=== PATIENT | male | born 1990 | race Caucasian/White ===

== ENCOUNTER 2021-01-18 01:18 | Inpatient (IN) | payer OTHER ==
[~2021-01-18] VITALS: Ht 185.4 cm; Wt 113.4 kg
[2021-01-18 01:29] VITALS: BP 149/113
[2021-01-18] MEDS ORDERED: CLONAZEPAM 0.50.5 M1 PO (01:42)
[2021-01-18 03:04] LABS: ABSOLUTE NEUTROPHILS 16.6 thou/uL (1.4-8.2); BASOPHILS 0.5 % (0.0-2.0); EOSINOPHILS 1.4 % (0.0-3.0); HEMATOCRIT 45.1 % (42.0-52.0); HEMOGLOBIN 15.6 gm/dL (14.0-18.0); LYMPHOCYTES 9.2 % (24.0-44.0); MCH 31.2 pg (26.0-34.0); MCHC 34.6 g/dL (28.0-37.0); MONOCYTES 4.6 % (1.0-8.0); PLATELET COUNT 231 thou/uL (150-400); POLYS 84.3 % (36.0-66.0); RBC 5.02 mil/uL (4.50-6.00); RDW 13.4 % (10.5-14.5); WBC 19.7 thou/uL (4.0-11.0)
[2021-01-18 03:12] LABS: CALCIUM 8.9 mg/dL (8.5-10.1); CREATININE 1.1 mg/dL (0.7-1.3)
[2021-01-18 03:19] LABS: ALBUMIN 3.6 g/dL (3.4-5.0); TOTAL BILIRUBIN 0.6 mg/dL (0.2-1.0); TOTAL PROTEIN 7.1 g/dL (6.4-8.2)
[2021-01-18 03:25] LABS: POTASSIUM 5.6 mmol/L (3.5-5.1)
[2021-01-18 07:31] VITALS: BP 128/77
[2021-01-18 07:37] VITALS: BP 135/84
--- NOTE | 2021-01-18 09:59 | NUR ---
ASSUMED PT CARE AT 0744 FROM ER. PT IS ALERT & ORIENTED X4. PT HAS IV SITE ON RAC RUNNING NS @75ML/HR. PT IS UP AD JOYCE. PT IS ON ROOM AIR. LAST BM WAS YESTERDAY. FINISHED ADMISSION. PT HAS BEEN NPO. WILL HAVE EGD TODAY. PT IS UP AD JOYCE. PT IS ON THE BED WATCHING TV, CALL LIGHT WITHIN REACH. WILL CONTINUE TO MONITOR PT. FOLLOW POC.
[2021-01-18 12:40] LABS: URINE BILIRUBIN NEGATIVE (Negative); URINE BLOOD TRACE (Negative); URINE CLARITY CLEAR; URINE COLOR YELLOW; URINE GLUCOSE-RANDOM* NEGATIVE (Negative); URINE KETONES TRACE (Negative); URINE LEUKOCYTES-REFLEX NEGATIVE (Negative); URINE NITRITE-REFLEX NEGATIVE (Negative); URINE PROTEIN (DIPSTICK) NEGATIVE (Negative)
--- NOTE | 2021-01-18 14:57 | NUR ---
PT ADMITTED RELATED TO ABD PAIN, ACHLASIA. CM REVEIWED CHART AND SPOKE WITH CARE TEAM. CM MET WITH PT AT BEDSIDE THIS DAY. PT APPEARED TO BE A&O X4. CM ROLE INTRODUCED. 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 HE INDICATED 3 STEPS TO ENTER AND NO STEPS INSIDE. PT INIDCATED HE HAS INSURANCE THROUGH HIS EMPLOYER [email or web address] AND THAT IT'S A [employer] PRODUCT. PT TO HAVE EGD TODAY AND WILL DC HOME TO SELF CARE LIKELY AFTER PROCEDURE. NO OTHER CM INTERVENTION INDICATED CASE CLOSED.
[2021-01-18 16:17] VITALS: BP 135/82
[2021-01-18 20:22] VITALS: BP 139/100
--- NOTE | 2021-01-19 00:51 | NUR ---
assessment completed . Pt observed walking around. c/o epigastric pain morphine IVP given. Pt is afebrile. NPO. Frustrated about not eating. Education provided.
[2021-01-19 03:30] VITALS: BP 139/84
[2021-01-19 05:00] LABS: ABSOLUTE NEUTROPHILS 6.3 thou/uL (1.4-8.2); BASOPHILS 0.4 % (0.0-2.0); EOSINOPHILS 2.9 % (0.0-3.0); HEMATOCRIT 43.3 % (42.0-52.0); HEMOGLOBIN 14.8 gm/dL (14.0-18.0); LYMPHOCYTES 27.1 % (24.0-44.0); MCH 31.2 pg (26.0-34.0); MCHC 34.1 g/dL (28.0-37.0); MCV 91.5 fL (80.0-100.0); MONOCYTES 7.2 % (1.0-8.0); PLATELET COUNT 199 thou/uL (150-400); POLYS 62.4 % (36.0-66.0); RBC 4.73 mil/uL (4.50-6.00); RDW 13.1 % (10.5-14.5); WBC 10.2 thou/uL (4.0-11.0)
[2021-01-19 06:10] LABS: CALCIUM 8.6 mg/dL (8.5-10.1)
[2021-01-19 07:57] VITALS: BP 138/85
--- NOTE | 2021-01-19 08:25 | NUR ---
PATIENT ALERT AND ORIENTED X4. C/O PAIN OF 4 IN EPIASTRIC REGION. SLEPT MOST OF NIGHT.
--- NOTE | 2021-01-19 10:12 | NUR ---
Assumed care of pt at 0700. Pt a&ox4. Pt states abd pain is tolerable. Started IV fluids. RA. Up ad elbert. IV antibiotics infusing. Per note repeat EGD over the weekend. Call light within reach. Will continue to monitor.
--- NOTE | 2021-01-19 15:24 | NUR ---
GI INDICATED THAT THEY ARE ANTICIPATING DOING PRPEAT EGD OVER WEEKEND. PT MAY BE MEDICALLY STABLE TO DC OVER WEEKEND. IT IS ANTICPATED THAT PT WILL LIKEY HAVE NO NEEDS ONCE MEDICALLY STABLE.
[2021-01-19 15:36] VITALS: BP 143/93
[2021-01-19 19:06] VITALS: BP 138/89
--- NOTE | 2021-01-20 01:56 | NUR ---
LATE ENTRY FROM 01/18/2021 ASSUMED CARE OF PT AT 1900. BEDSIDE REPORT RECIEVED, TOBY ASSESSMENT COMPLETE. PT HAS LLE CAM BOOT TO BE ON AT ALL TIMES. UP C SBA TO BATHROOM OR BSC. MEDS GIVEN ORDERED, REFUSED STOOL SOFTNERS, PAIN PILL GIVEN AT 2147. RESIDENTIAL THRU SCANNING MEDS COMPUTER HORACIO, CHARGE NURSE LISBET INSTRUCTED THIS NURSE TO GO TO DIFFERENT COMPUTER, ALL OTHER COMPUTERS WOUDL NOT LET ME LOG IN/SCAN MEDS BCC I WAS STILL LOGGED ON TO THE [employer]. TOLD CHARGE NURSE LISBET AND SHE INSTRUCTED ME TO GO AHEAD AND GIVE THEM WITH OUT SCANNING VERIFYING EACH MED TO MAR ENSURING CORRECT TIME, ROUTE, PT, ETC. PTS LAC PIV WAS TAPED DOWN BUT CANNULA WAS COMPLETELY OUT OF PTS ARM. PASSED ON TO DAY SHIFT NURSE TO REPLACE PIV. PT DENIES ANY OTHER NEEDS, CALL LIGHT IN REACH
--- NOTE | 2021-01-20 05:04 | NUR ---
PT SLEPT THROUGH THE NIGHT. REPORTS NO PAIN OR DISCOMFORT, LOOKING FORWARD TO RESUME EATING, COMMPLIANT OF [place], REMAINS NPO WILL CONTINUE TO MONITOR.
[2021-01-20 06:20] VITALS: BP 158/92
--- NOTE | 2021-01-20 08:56 | NUR ---
Assumed care of pt at 0700. Pt a&ox4. Up ad elbert. NPO. IVF and IV antibiotics infusing. Scheduled for EGD today. Call light within reach. Will continue to monitor.
[2021-01-20 12:18] VITALS: BP 158/102
[2021-01-20 13:00] VITALS: BP 158/102
--- NOTE | 2021-01-21 09:23 | P ---
[facility] [place] [address] PROCEDURE REPORT Name: DONI KEYES Room #: 434-P [facility] IN M.R.#: [id number] Admission: 01/18/21 Attend Phys: Jozef Rodriguez MD Discharge: 01/20/21 Date of : 89 Report #: [id number] THIS REPORT FOR: cc: NO FAMILY PHYSICIAN or PCP NO FAMILY PHYSICIAN or PCP Gennaro Heath MD ~ cc: Kai Wylie DO, Jozef Rodriguez MD DATE OF SERVICE: 01/20/2021 PROCEDURE PERFORMED: Upper endoscopy. HISTORY OF PRESENT ILLNESS: The patient is a 31-year-old male with recent odynophagia and dysphagia, who underwent an upper endoscopy by Dr. Nesbitt my partner on 01/18/2021. He was noted to have a large submucosal tear noted in the middle and lower third of the esophagus located between 25 and 33 cm. No active bleeding was noted. Blood clots were seen, grade A erosive esophagitis was noted in the distal esophagus, stomach and duodenum were normal. The patient was placed n.p.o., placed on high dose PPI therapy. He then underwent a CT scan of the abdomen and pelvis which showed lower posterior mediastinal paraesophageal fluid of uncertain significance. If this is clinically concerning for esophageal injury, CT chest would be recommended. CT chest was then performed, which showed mild mid and distal esophageal mural thickening and mild distal paraesophageal fluid without evidence of foreign body or perforation. Consider esophagitis. Plan is for repeat upper endoscopy today to reevaluate mucosal tear. The patient denies any chest pain at this time. He is feeling better in general. He denies any nausea or vomiting or bleeding. DESCRIPTION OF PROCEDURE: The risks and benefits of the procedure were explained to the patient, those risks including but not limited to bleeding, perforation and the risk of sedation. He understood these risks and gave informed consent. Sedation was given using propofol per anesthesia. Next, using a standard Olympus upper endoscope, the scope was placed in the patient's mouth and advanced under direct vision through the esophagus, stomach and into the second portion of the duodenum. The larynx was normal in appearance. The upper esophagus was normal. Once again in the mid to distal esophagus from 25 to approximately 35 cm, a large tear was noted. In comparing pictures from previous endoscopy, this does appear to be healing. It was deep in the more distal portions, but no evidence of perforation. It appears to be healing. Again, he also has classic changes of eosinophilic esophagitis in the other areas of the esophagus. No evidence of bleeding were noted. I did not take biopsies today. In the distal esophagus, grade A erosive esophagitis was once again noted. Overall, the gastric mucosa was normal. The pylorus was normal and patent. The duodenal bulb, first and second portion were all normal. At [address] [address] PROCEDURE REPORT Name: DONI KEYES Room #: 434-P [facility] IN M.R.#: [id number] Admission: 01/18/21 Attend Phys: Jozef Rodriguez MD Discharge: 01/20/21 Date of : 89 Report #: [id number] this point, the scope was then withdrawn and the procedure terminated. The patient tolerated the procedure well. IMPRESSION: 1. Large mucosal tear again noted; however, it appears to be healing when compared to a recent endoscopy pictures. 2. Changes likely consistent with eosinophilic esophagitis. 3. Otherwise, normal upper endoscopy. RECOMMENDATIONS: 1. We will continue b.i.d. PPI therapy. 2. We will add Carafate liquid t.i.d. for the next 2 weeks. 3. We will allow the patient to start clear liquids today. If he tolerates this, he can be discharged home. I would then recommend continuing clear liquids for the next several days and slowly advance diet with full liquids as tolerated. He needs a repeat upper endoscopy with Dr. Wylie in the next month once this has healed for dilation. Thank you for allowing me to participate in his care. <ELECTRONICALLY SIGNED> By: Gennaro Heath MD 01/21/21 0923 [id number] Gennaro Heath MD /nt
== END 2021-01-20 13:08 | disposition home or self-care (01) | DRG 391 ==
LOC: ER 01:18 → 4S 04:51 → EROBS 04:51 → 4S 07:26
PROVIDERS: Emergency Medicine; Nurse Practitioner; ADMIT Hospitalist; ATTEND Hospitalist
PROC: 0DJ08ZZ Inspection of Upper Intestinal Tract, Via Natural or Artificial Opening Endoscopic (ICD-10-PCS; principal; 2021-01-20)
DX: K22.0 Achalasia of cardia (principal); S27.813A Laceration of esophagus (thoracic part), initial encounter; R13.10 Dysphagia, unspecified; F41.9 Anxiety disorder, unspecified; D72.829 Elevated white blood cell count, unspecified; R74.01 Elevation of levels of liver transaminase levels; E87.5 Hyperkalemia; E66.9 Obesity, unspecified; K76.0 Fatty (change of) liver, not elsewhere classified; K20.90 Esophagitis, unspecified without bleeding; Z88.6 Allergy status to analgesic agent; Z68.33 Body mass index [BMI] 33.0-33.9, adult; X58.XXXA Exposure to other specified factors, initial encounter; Y93.89 Activity, other specified; Y92.89 Other specified places as the place of occurrence of the external cause; Y99.8 Other external cause status; Z20.822 Contact with and (suspected) exposure to COVID-19; Z28.21 Immunization not carried out because of patient refusal
CPT/HCPCS: 10195; 62110; 62900; 70005